=== PATIENT | female | born 1945 | race Caucasian/White ===

== ENCOUNTER 2022-02-01 14:09 | Outpatient (CLI) | payer SELFPAY ==
[2022-02-01 14:43] LABS: Glucose, Point-of-Care* 256 mg/dl (60-115)
[2022-02-01 21:53] LABS: Chloride* 97 mmol/L (96-114); Sodium* 132 mmol/L (135-149)
[2022-02-01 21:54] LABS: Basophils Percent Auto 0.1 % (0.0-3.0); Hematocrit 44.1 % (33.0-51.0); Hemoglobin* 15.2 gm/dL (12.0-16.0); Immature Granulocytes Abs Auto 0.02 K/uL (0.00-0.30); Lymphocytes Percent Auto 2.1 % (20-44); Mean Corpuscular HGB Conc 35 gm/dL (32-36); Mean Corpuscular Hemoglobin 31 pg (26-34); Mean Corpuscular Volume 91 fL (80-100); Monocytes Percent Auto 5.6 % (0.0-11.0); Neutrophils Percent Auto 92.1 % (42.0-72.0); Platelet Count* 270 K/uL (140-440); RDW Coefficient of Variation % 11.7 % (11.5-15.5); Red Blood Count 4.84 m/uL (4.00-5.20)
[2022-02-01 21:56] LABS: Blood Urea Nitrogen* 10 mg/dL (7-30); Calcium* 8.9 mg/dL (8.4-10.6); Carbon Dioxide* 23 mmol/L (20-32); Creatinine* 0.4 mg/dL (0.5-1.5); Estimated Glomerular Filt Rate 101 ml/min; Glucose* 284 mg/dL (60-115)
[2022-02-01 21:57] LABS: Slide Review Reflex No
== END 2022-02-01 14:10 | disposition home or self-care (01) ==
LOC: KYNREF 14:11
PROVIDERS: PCP Nurse Practitioner Family; Visit Provider Nurse Practitioner Family
DX: R11.2 Nausea with vomiting, unspecified (principal); U07.1 COVID-19; R19.7 Diarrhea, unspecified
CPT/HCPCS: 36415; 80048; 82947; 85025

== ENCOUNTER 2022-07-18 09:34 | Outpatient (CLI) | payer MEDICARE, SELFPAY ==
[2022-07-18 14:04] LABS: Basophils Absolute Auto 0.05 K/uL (0.00-0.30); Basophils Percent Auto 0.5 % (0.0-3.0); Eosinophils Absolute Auto 0.14 K/uL (0.00-0.50); Eosinophils Percent Auto 1.3 % (0.0-7.0); Hematocrit 46.7 % (33.0-51.0); Hemoglobin* 15.9 gm/dL (12.0-16.0); Immature Granulocytes Abs Auto 0.03 K/uL (0.00-0.30); Immature Granulocytes Pct Auto 0.3 %; Lymphocytes Absolute Auto 2.19 K/uL (0.90-2.90); Lymphocytes Percent Auto 20.9 % (20-44); Mean Corpuscular HGB Conc 34 gm/dL (32-36); Mean Corpuscular Hemoglobin 31 pg (26-34); Mean Corpuscular Volume 92 fL (80-100); Monocytes Percent Auto 7.5 % (0.0-11.0); Neutrophils Absolute Auto 7.28 K/uL (1.7-7.0); Neutrophils Percent Auto 69.5 % (42.0-72.0); Platelet Count* 285 K/uL (140-440); RDW Coefficient of Variation % 11.7 % (11.5-15.5); Red Blood Count 5.07 m/uL (4.00-5.20); White Blood Count* 10.48 K/uL (4.50-11.00)
[2022-07-18 14:15] LABS: Slide Review Reflex No
[2022-07-18 14:29] LABS: Creatinine Urine 178.8 mg/dL
[2022-07-18 14:31] LABS: Albumin* 4.6 g/dL (3.3-5.0)
[2022-07-18 14:32] LABS: Chloride* 103 mmol/L (96-114); Potassium* 4.7 mmol/L (3.6-5.1); Sodium* 140 mmol/L (135-149)
[2022-07-18 14:33] LABS: Microalbumin Creatinine Ratio 0 mg/g (0-30); Microalbumin Urine 1 mg/dL
[2022-07-18 14:34] LABS: Aspartate Amino Transferase* 22 U/L (12-35); Bilirubin Total* 0.6 mg/dL (0.1-1.5); Carbon Dioxide* 24 mmol/L (20-32); Cholesterol* 215 mg/dL (90-199); Creatinine* 0.6 mg/dL (0.5-1.5); Estimated Glomerular Filt Rate 91 ml/min; Total Protein* 7.4 g/dL (6.0-8.3)
[2022-07-18 14:35] LABS: Alanine Aminotransferase* 18 U/L (4-35); Alkaline Phosphatase* 108 U/L (40-150); Blood Urea Nitrogen* 11 mg/dL (7-30); Calcium* 9.4 mg/dL (8.4-10.6); Glucose* 165 mg/dL (60-115); Triglycerides* 181 mg/dL (40-149)
[2022-07-18 14:36] LABS: HDL Cholesterol* 55 mg/dL (>=50); LDL Cholesterol Calculated 124 mg/dL (<100)
== END 2022-07-18 09:35 | disposition home or self-care (01) ==
PROVIDERS: PCP Nurse Practitioner Family; Visit Provider Nurse Practitioner Family
DX: Z00.00 Encounter for general adult medical examination without abnormal findings (principal); E11.9 Type 2 diabetes mellitus without complications; I10 Essential (primary) hypertension; E78.5 Hyperlipidemia, unspecified; Z13.0 Encounter for screening for diseases of the blood and blood-forming organs and certain disorders involving the immune mechanism
CPT/HCPCS: 80053; 80061; 82043; 82570; 84443; 85025

== ENCOUNTER 2023-07-20 08:16 | Outpatient (CLI) | payer MEDICARE, SELFPAY ==
--- OUTSIDE RECORDS SUMMARY | 2023-07-20 08:22 | XMS_ITS | Referral Summary ---
Author Name Unknown Organization [facility] Address [address] [place] [address] Care Team Providers Care Animal Caregiver Name Role Phone Elsewhere, Pcp Primary Care Provider Unavailabl e Source Comments Patient records contain information from all sites at [facility]. For routine questions regarding patient records, call [phone] during business hours, M-F 8:00 AM - 5:00 PM Central Time. Record requests for emergency care only can be directed to [phone] at any time.[facility] Allergies Active Allergy Reactions Criticality Noted Date Comments Atorvastatin Myalgia 07/13/2011 had in past - reinstitution of that has no has problem Bupropion Other (see comments) 01/18/2016 Metformin GI intolerance High 07/22/2020 Colitis of the descending colon, sigmoid colon and part of the rectum per CT scan 07/20/2020. Rectal bleeding and left lower quadrant pain. Medications Medication Sig Dispensed Refills Start Date End Date Status aspirin 81 mg chewable tablet Chew 1 tablet daily. 0 02/20/2015 Active betamethasone dipropionate (for_DIPROLENE) 0.05 % lotion as needed. 0 03/24/2017 Active polyethylene glycol (MIRALAX) 17 gram powder packet Take 1 packet by mouth as needed. 0 09/22/2017 Active SITagliptin (JANUVIA) 100 mg tabletIndications:Di abetes Mellitus Type 2 (HCC) Take 1 tablet (100 mg total) by mouth daily. 90 tablet 3 07/15/2021 Active SUMAtriptan (IMITREX) 50 mg tabletIndications:Sp oradic Hemiplegic Migraine (SHM) Take 1 tablet (50 mg total) by mouth as needed for migraine. October repeat dose once in 2 hours if migraine unresolved. Do not exceed 200 mg in 24 hours. 9 tablet 3 07/15/2021 Active atenoloL (TENORMIN) 100 mg tabletIndications:Hy pertension Essential Primary Take 1 tablet (100 mg total) by mouth daily. 90 tablet 3 07/15/2021 Active busPIRone (BUSPAR) 10 mg tabletIndications:An xiety Generalized Disorder Take 1 tablet (10 mg total) by mouth 2 (two) times a day. 180 tablet 3 07/15/2021 Active rosuvastatin (Crestor) 10 mg tabletIndications:Hy perlipidemia Mixed Take 1 tablet (10 mg total) by mouth at bedtime. A higher dose of medication could be considered. 90 tablet 3 07/15/2021 Active ammonium lactate (AMLACTIN) 12 % cream APPLY TO AREAS ON BODY TWICE A DAY ONGOING 0 07/19/2021 Active losartan (COZAAR) 50 mg tabletIndications:Hy pertension Essential Primary Take 1 tablet by mouth once daily 90 tablet 3 09/24/2021 Active venlafaxine XR (EFFEXOR-XR) 150 mg 24 hr capsuleIndications:A nxiety Generalized Disorder TAKE 1 CAPSULE BY MOUTH ONCE DAILY WITH FOOD 90 capsule 2 09/27/2021 Active omeprazole (PriLOSEC) [address] capsuleIndications:D yspepsia Take 1 capsule by mouth once daily 90 capsule 3 11/24/2021 Active Active Problems Problem Noted Date Diagnosed Date Ulcerative Chronic Rectosigmoiditis With Rectal Bleeding 07/08/2021 Hyperhidrosis 01/13/2021 Overview: Per dermatology: prescribed oxybutynin XL 5 mg daily at bedtime. 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 Hyperlipidemia Mixed 06/01/2017 Anxiety Generalized Disorder 06/01/2017 Rhinitis Chronic 06/01/2017 Sporadic Hemiplegic Migraine (SHM) 06/01/2017 Keratosis Actinic 05/30/2016 Diabetes Mellitus Type 2 12/24/2014 Supraventricular Tachycardia, Unspecified 2010 Hypertension And Chronic Kidney Disease Stage 2 08/30/2010 Osteopenia 08/05/2010 Resolved Problems Problem Noted Date Diagnosed Date Resolved Date Obesity Body Mass Index 30-39.9 Adult 02/08/2019 07/15/2021 Health Instruction Exam 11/01/201801/18 Dermatitis 06/01/2017 07/14/2020 Supraventricular Tachycardia, Unspecified 11/18/2013 06/01/2017 Overview: Supraventricular tachycardia Immunizations Name Administration Dates Next Due HZV (ZOSTAVAX) 07/02/2012 Influenza (IM) Preservative Free 05/08/2015,12/2006 Influenza TIV (IM) 05/03/2018 Influenza high dose QV(65 ye ars or older) (PF) 05/18/2021,04/06/2020 Influenza, Unspecified 03/24/2017,2015,04/09/2014,2012,04/10/2012,04/05/2011,04/07/2010,0 03/17/2009,04/24/2008,04/25/2007 PCV13 05/09/2014 PPSV23(Discontinued) 05/25/2009 SARS-COV-2 (COVID-19) - PFIZ ER (Discontinued)(12 years or older) 03/25/2021,08/31/2020,08/06/2020 Td (Adult), adsorbed 06/01/2017 Td, (Adult) Unspecified 01/01/1997 Tdap 11/12/2021,05/03/2007 influenza high dose (65 year s or older) (PF) 03/28/2019,05/03/2018 Social History Tobacco Use Types Packs/Day Years Used Date Smoking Tobacco: Never Smokeless Tobacco: Never Tobacco Cessation:Counseling Given: Yes Humiliation, Afraid, Rape, and Kick questionnair e Answer Date Recorded Within the last year, have y ou been afraid of your partner or ex-partner? No 07/10/2021 Within the last year, have y ou been humiliated or emotionally abused in other ways by your partner or ex-partner? No Within the last year, have y ou been kicked, hit, slapped, or otherwise physically hurt by your partner or ex-partner? No 07/10/2021 Within the last year, have y ou been raped or forced to have any kind of sexual activity by your partner or ex-partner? No 07/10/2021 Social Connection and Isolat ion Panel [NHANES] Answer Date Recorded In a typical week, how many times do you talk on the phone with family, friends, or neighbors? More than three times a week 07/10/2021 How often do you get togethe r with friends or relatives? Three times a week 07/10/2021 How often do you attend chur or latter day services? More than 4 times per year 07/10/2021 Do you belong to any clubs o r organizations such as temple groups, unions, fraternal or athletic groups, or school groups? Yes 07/10/2021 How often do you attend meet ings of the clubs or organizations you belong to? More than 4 times per year 07/10/2021 Are you , , di vorced, , never , or living with a partner? 07/10/2021 AUDIT-C Answer Date Recorded Q1: How often do you have a drink containing alc ohol? Monthly or less 07/10/2021 Q2: How many drinks containi ng alcohol do you have on a typical day when you are drinking? 1 or 2 07/10/2021 Q3: How often do you have si x or more drinks on one occasion? Never 07/10/2021 Overall Financial Resource Strain (CARDIA) Answe r Date Recorded How hard is it for you to pa y for the very basics like food, housing, medical care, and heating? Not hard at all 07/10/2021 PHQ-2 Answer Date Recorded PHQ-2 Score 0 07/15/2021 [facility] - Occupational Stress Questionnaire Answer Date Recorded Do you feel stress - tense, restless, nervous, or anxious, or unable to sleep at night because your mind is troubled all the time - these days? To some extent 07/10/2021 Exercise Vital Sign Answer Date Recorde d On average, how many days pe r week do you engage in moderate to strenuous exercise (like a brisk walk)? 4 days 07/10/2021 On average, how many minutes do you engage in exercise at this level? 30 min 07/10/2021 Hunger Vital Sign Answer Date Recorded Within the past 12 months, y ou worried that your food would run out before you got the money to buy more. Never true 07/10/19 Within the past 12 months, t he food you bought just didn't last and you didn't have money to get more. Never true 07/10/2021 PRAPARE - Transportation Answer Date Re corded In the past 12 months, has l ack of transportation kept you from medical appointments or from getting medications? No 06/20 In the past 12 months, has l ack of transportation kept you from meetings, work, or from getting things needed for daily living? No 07/10/2021 Housing Stability Vital Sign Answer Itz e Recorded In the last 12 months, was t here a time when you were not able to pay the mortgage or rent on time? No 07/10/2021 In the last 12 months, how many places have you lived? 1 07/10/2021 In the last 12 months, was t here a time when you did not have a steady place to sleep or slept in a snf (including now)? No 07/10/2021 Nutrition Answer Date Recorded Nutrition: EVOO Fat Source Yes 07/10 On average, how many serving s of fruits and vegetables do you eat per day (serving size is equal to 1 cup or approximately the size of a tennis ball)? 0-1 07/10/2021 Dental Answer Date Recorded Dental: Regular Dentist Yes 08/06/19 Employment Answer Date Recorded Employment status Retired 07/10/2021 Education Answer Date Recorded What is the highest level of school you have completed or the highest degree you have received? Associate degree: academic program 07/10/2021 Sex and Gender Information Value Date Recorded Sex Assigned at Female 06/01/2017 8:39 AM RETAIL COVERAGE MERCHANDISER Gender Identity Female 06/01/2017 8:39 AM RETAIL COVERAGE MERCHANDISER Sexual Orientation Straight 06/01/2017 8: 39 AM RETAIL COVERAGE MERCHANDISER Last Filed Vital Signs Vital Sign Reading Time Taken Comments Blood Pressure 138/83 12/23/2021 11:48 AM CDT Pulse 67 12/23/2021 11:48 AM CDT Temperature 36.8 ??C (98.2 ??F) 12/23/2021 11:40 AM C DT Respiratory Rate 20 12/23/2021 11:40 AM CDT Oxygen Saturation 100% 01/13/2021 9:18 AM CDT Inhaled Oxygen Concentration - - Weight 80.4 kg (177 lb 4 oz) 12/23/2021 11:40 AM CDT Height 170.4 cm (5' 7.09) 12/23/2021 11:40 AM C DT Body Mass Index 27.69 12/23/2021 11:40 AM CDT Plan of Treatment Not on file Advance Directives For more information, please contact: [phone] Documents on File Type Date Recorded Patient Safety Patrol Officer Expl anation Advance Directives 08/08/2014 12:00 AM Leg acy document. See document viewer. Care Teams Animal Caregiver Relationship Specialty Start Date End Date Elsewhere, Pcp PCP - General Internal Medicine 06/06/22
--- OUTSIDE RECORDS SUMMARY | 2023-07-20 08:22 | XMS_ITS | Clinical Summary ---
Author Name Unknown Organization [facility] Address [address] [place] [address] Care Team Providers Care Resizer Operator Name Role Phone Elsewhere, Pcp Primary Care Provider Unavailabl e Source Comments Patient records contain information from all sites at [facility]. For routine questions regarding patient records, call [phone] during business hours, M-F 8:00 AM - 5:00 PM Central Time. Record requests for emergency care only can be directed to [phone] at any time.[facility] Allergies Active Allergy Reactions Criticality Noted Date [...] (65 year s or older) (PF) 03/28/2019,05/03/2018 Family History Medical History Relation Name Comments Agent [employer] Brother Alcohol abuse Brother COPD Brother Coronary artery disease Brother Diabetes Brother Drug abuse Brother Heart attack Brother Hyperlipidemia Brother Hypertension Brother Diabetes mellitus type I Child 1 Diabetes mellitus type I Child 2 Dementia Father Cause of Heart attack Father Other(retired) Maternal Grandfather Clot in leg No Known Problems Maternal Grandmother Cancer Mother Cause of Diabetes Mother Hyperlipidemia Mother Hypertension Mother Cancer Paternal Grandfather Face an d neck Dementia Paternal Grandmother retirement resident Breast cancer Sister 1 Radha inflammatory b reast cancer Mental illness Sister 1 Radha Dementia Sister 2 Relation Name Status Comments Brother (Age 76) Child 1 Child 2 Father (Age 93) Maternal Grandfather (Age 80) Maternal Grandmother (Age 80) Mother (Age 58) Paternal Grandfather (Age 80) Paternal Grandmother (Age 80) Sister 1 Radha (Age 50) Sister 2 Alive Social History Tobacco Use Types Packs/Day Years [...] How often do you attend chur or confucianist services? More than 4 times per year 07/10/2021 Do you belong to any clubs o r organizations such as rastafarian groups, unions, fraternal or athletic groups, or [...] Answer Date Recorded PHQ-2 Score 0 07/15/2021 [facility] - Occupational Stress Questionnaire Answer Date [...] place to sleep or slept in a halfway (including now)? No 07/10/2021 Nutrition Answer Date Recorded Nutrition: EVOO Fat Source Yes 07/10 On average, how many serving s of fruits and vegetables do you eat per day (serving size is equal to 1 cup or approximately the size of a tennis ball)? 0-1 07/10/2021 Dental Answer Date Recorded Dental: Regular Dentist Yes 08/06/19 21 Employment Answer Date Recorded Employment status Retired 07/10/2021 Education Answer Date Recorded What is the highest level of school you have completed or the highest degree you have received? Associate degree: academic program 07/10/2021 Sex and Gender Information Value Date Recorded Sex Assigned at Female 06/01/2017 8:39 AM FOLDER MACHINE Gender Identity Female 06/01/2017 8:39 AM FOLDER MACHINE Sexual Orientation Straight 06/01/2017 8: 39 AM FOLDER MACHINE Last Filed Vital Signs Vital Sign Reading [...] 12/23/2021 11:40 AM CDT Plan of Treatment Health Maintenance Due Date Last Done Comments Hepatitis B Vaccines (1 of 3 - Risk 3-dose series) 2003 Hemoglobin A1C 06/16/2022 12/15/2021, 06/20, 01/11/2021, Additional history exists Urine Albumin 07/14/2022 07/14/2021, 06/20, 07/11/2019, Additional history exists Diabetes Education 07/15/2022 07/15/2021, 0 07/14/2020, 05/27/2015 Diabetic Office Visit with F oot Exam 07/15/2022 07/15/2021, 07/14/2020, 05/27/2015 Dilated Eye Exam 12/14/2022 12/14/2021 (Per formed elsewhere), 12/10/2020 (Performed elsewhere), 12/10/2020 (Performed elsewhere) Creatinine Level (Kidney Fun ction Test) 12/15/2022 12/15/2021, 07/14/2021, 01/11/2021, Additional history exists Potassium Level 12/15/2022 12/15/2021, 06/20, 01/11/2021, Additional history exists Sodium Level 12/15/2022 12/15/2021, 06/20, 01/11/2021, Additional history exists Office Visit for Blood Press ure Check / Re-check 12/23/2022 12/23/2021 Depression Screening (Annual PHQ-2) 06/19/2023 Fall Risk Screen (Annual) 06/19/2023 DTaP,Tdap,and Td Vaccines (4 - Td or Tdap) 11/13/2031 11/12/2021, 06/01/2017, 05/03/2007, Additional history exists Pneumococcal vaccine (65+ years) Completed 05/09/20 14, 05/25/2009 Colonoscopy Discontinued 06/27/2018, 05/06/2008 Colorectal Cancer Surveillance Discontinued Zoster Vaccines Completed 03/01/2022, 12/17, 07/02/2012 Mammogram Discontinued 07/18/2022, 06/20, 07/14/2020, Additional history exists COVID-19 Vaccine Completed 03/28/2023, , 03/25/2021, Additional history exists Influenza Vaccine Completed 03/28/2023, , 05/18/2021, Additional history exists CT Colonography Discontinued Cologuard Discontinued Advance Directives For more information, please contact: [phone] Documents on File Type Date Recorded Patient Outbound Sales Advisor Expl anation Advance Directives 08/08/2014 12:00 AM Leg acy document. See document viewer. Care Teams Resizer Operator Relationship Specialty Start Date End Date Elsewhere, Pcp PCP - General Internal Medicine 06/06/22
--- OUTSIDE RECORDS SUMMARY | 2023-07-20 08:22 | XMS_ITS | Clinical Summary ---
Author Name Unknown Organization [email or web address] Address [place], [place] [address] Care Team Providers Care Microeconomics Professor Name Role Phone Adenike Storey JAIL MANAGER Primary Care Provider [phone] Allergies Active Allergy Reactions Criticality Noted Date Comments Atorvastatin Myalgia 07/13/2011 Bupropion Other - Describe In Comment Field 01/18/2016 Metformin GI Upset High 07/22/2020 Colitis of the descending colon, sigmoid colon and part of the rectum per CT scan 07/20/2020. Rectal bleeding and left lower quadrant pain. Medications Medication Sig Dispensed Refills Start Date End Date Status atenolol (TENORMIN) 100 mg tablet Take 100 mg by mouth once daily. 0 Active SUMAtriptan (IMITREX) 50 mg tablet Take 50 mg by mouth every 2 hours if needed for Migraine. Max dose: 200mg per 24 hrs. 0 Active Cetirizine (ZYRTEC) 10 mg cap Take 10 mg by mouth. 0 Active polyethylene glycol (MIRALAX) 17 g powder for solutionIndications:Co nstipation, unspecified constipation type Take 17 g by mouth once daily. 10 Packet 0 09/22/2017 Active venlafaxine (EFFEXOR XR) 150 mg Extended-Release capsuleIndications:Anx iety Take 1 Capsule (150 mg) by mouth once daily with evening meal. 0 11/13/2022 Active busPIRone (BUSPAR) 10 mg tablet Take 10 mg by mouth two times daily. 0 07/15/2021 Active losartan (COZAAR) 50 mg tablet Take 1 Tablet by mouth once daily. 0 09/24/2021 Active omeprazole (PRILOSEC) 20 mg Delayed-Release capsule Take 1 Capsule by mouth once daily. 0 11/24/2021 Active rosuvastatin (CRESTOR) 10 mg tablet Take 10 mg by mouth once daily with evening meal. 0 07/15/2021 Active SITagliptin phosphate (JANUVIA) 100 mg tablet Take 100 mg by mouth once daily. 0 07/15/2021 Active Encounters Date Type Department Care Team Description 07/13/2023 1:38 PM MGMT SPECIALIST - 07/13/2023 11:59 PM MGMT SPECIALIST Hospital Encounter [address] [address] Michelle Edwards PA Henry, Lori J, COMBINER OPERATOR 07/13/2023 Travel 07/06/2023 1:00 PM MGMT SPECIALIST - 07/06/2023 11:59 PM [facility] Hospital Encounter [address] [address] Michelle Edwards PA Henry, Lori J, COMBINER OPERATOR 07/06/2023 Travel 06/29/2023 11:28 AM MGMT SPECIALIST - 06/29/2023 11:59 PM [facility] Hospital Encounter [address] [address] Michelle Edwards PA Hagy, Tia, PT Encounter for person encountering health services 06/29/2023 Travel 06/21/2023 Transcribe Orders [facility] [address] [address] Michelle Edwards PA from Last 3 Months Social History Tobacco Use Types Packs/Day Years Used Date Smoking Tobacco: Never Smokeless Tobacco: Never Alcohol Use Standard Drinks/Week Comments Yes 0 (1 standard drink = 0.6 oz pur e alcohol) socially Sex and Gender Information Value Date Recorded Sex Assigned at Not on file Gender Identity Not on file Sexual Orientation Not on file Obstetrics History Last Filed Vital Signs Vital Sign Reading Time Taken Comments Blood Pressure 135/73 11/13/2022 5:58 PM CDT Pulse 70 11/13/2022 5:58 PM CDT Temperature 36.9 ??C (98.5 ??F) 11/13/2022 5:58 PM CD T Respiratory Rate 16 11/13/2022 5:58 PM CDT Oxygen Saturation 97% 11/13/2022 5:58 PM CDT Inhaled Oxygen Concentration - - Weight 82.2 kg (181 lb 3.2 oz) 11/13/2022 4:08 P M CDT Height 170.2 cm (5' 7) 07/20/2020 11:01 AM MGMT SPECIALIST Body Mass Index 28.38 07/20/2020 11:01 AM MGMT SPECIALIST Plan of Treatment Upcoming Encounters Date Type Department Care Team (Late st Contact Info) Description 07/21/2023 1:15 PM MGMT SPECIALIST Appointment [address] [address] Flavia Pryor, PT [address] [place] [address] 07/27/2023 11:00 AM MGMT SPECIALIST Appointment [address] [address] Jeanine Lopes, COMBINER OPERATOR [address] [place] [address] 08/04/2023 11:30 AM MGMT SPECIALIST Appointment [address] [address] Flavia Pryor, PT [address] [facility] [place] [address] 08/10/2023 11:00 AM MGMT SPECIALIST Appointment [address] [address] Jeanine Lopes, COMBINER OPERATOR [address] [place] [address] 08/17/2023 9:15 AM MGMT SPECIALIST Appointment [address] [address] Flavia Pryor, PT [address] [facility] [place] [address] 08/24/2023 11:00 AM MGMT SPECIALIST Appointment [facility] [address] [place] [address] Jeanine Lopes, COMBINER OPERATOR [address] [place] [address] 08/31/2023 11:30 AM CDT Appointment [facility] [address] [place] [address] Flavia Pryor, PT [address] [place] [address] Health Maintenance Due Date Last Done Comments Tdap 1954 Depression screening for age 12+ 1955 BMI (ht and wt on same day) for age 18+ 1961 Tetanus booster 1963 Zoster (shingles) series for age 50+ (1 of 2) 1993 DEXA/DXA scan for age 65+ 2008 Medicare Wellness for age 65+ 2008 Pneumococcal series for age 65+ (1 of 1 - PCV) 2008 Influenza for age 65+ 02/17/2023 COVID-19 vaccine series Completed 03/28/20, 11/12/2021, 03/25/2021, Additional history exists Advance Directives Latest Code Status on File Code Status Date Activated Date Inactivated Comments Full Code 06/27/2018 6:49 AM 06/27/2018 11:10 AM Care Teams Microeconomics Professor Relationship Specialty Start Date End Date Adenike Storey NP [address] [place] [address] PCP - General Emergency Medicine 05/18/22
--- OUTSIDE RECORDS SUMMARY | 2023-07-20 08:22 | XMS_ITS ---
Author Name Unknown Organization [facility] Address [address] [place] [address] Care Team Providers Care Telemetry Tech Name Role Phone Unavailable Unavailable Unavailable Surgery Details Not on file Complications Check Surgery Details section. Procedure Estimated Blood Loss Check Surgery Details section. Procedure Findings Check Surgery Details section. Procedure Specimens Taken Check Surgery Details section.
== END 2023-07-20 08:17 | disposition home or self-care (01) ==
PROVIDERS: PCP Nurse Practitioner Family; Visit Provider Nurse Practitioner Family
DX: E78.5 Hyperlipidemia, unspecified (principal); I10 Essential (primary) hypertension; E06.9 Thyroiditis, unspecified; E11.9 Type 2 diabetes mellitus without complications; Z79.85 Long-term (current) use of injectable non-insulin antidiabetic drugs; Z13.0 Encounter for screening for diseases of the blood and blood-forming organs and certain disorders involving the immune mechanism
CPT/HCPCS: 80053; 80061; 82043; 82570; 84443; 85025

== ENCOUNTER 2023-08-01 12:57 | Outpatient (CLI) | payer MEDICARE, SELFPAY ==
--- NOTE | 2023-08-01 13:00 | XR_ITS ---
Patient: FAWN GOVEA Facility:?[facility] Patient ID:?[id number] Site Patient ID:?[id number]. Site :?[id number] Study:?DEXA-Bone Density DEXA - Spine/Hips-08/01/2023 1:46:49 PM Ordering Physician:DAVID Final Report: DXA BONE MINERAL DENSITY STUDY Reason for exam: Osteopenia. Current height (in): 66.5. Weight (lb): 180. Menopause age: 48. Ethnicity: White. 1. Have you had a previous hip or vertebral fracture? No. 2. Have you had any fractures during your adult life which did not result from significant trauma (e.g., auto accident)? No. 3. Did either of your parents have a hip fracture? No. 4. Do you smoke? No. 5. Have you ever taken Glucocorticoids? No. 6. Do you have rheumatoid arthritis? No. 7. Do you have secondary osteoporosis? No. 8. Do you drink 3 or more alcoholic drinks per day? No. 9. Are you being treated for osteoporosis? No. 10. Have you ever taken any of the following medications: Actonel, Evista, Fosamax, Miacalcin, Reclast, Boniva, Forteo, HRT (i.e., estrogen/hormone therapy), Protelos, Prolia, Vitamin D, Calcium, other ? please specify. ANSWER: Yes, vitamin D and calcium. 11. Do you have any of the following medical conditions: Anorexia or bulimia, asthma or emphysema, end stage renal disease, hyperparathyroidism, any seizure disorders, cancer, inflammatory bowel diseases, hysterectomy, other ? please specify. ANSWER: Yes, Inflammatory bowel diseases and hysterectomy. 12. What was your maximum height (inches)? 67. 13. Do you perform weight bearing exercise regularly? Yes. 14. Do you regularly consume dairy products? Yes. 15. Do you drink caffeinated beverages? Yes. If female: 16. At what age did your period start? 12. 17. Are you premenopausal? No. 18. How many full-term pregnancies have you had? 3. 19. Have you ever missed your period for more than 6 months in a row (not including or menopause)? No. TECHNIQUE: Bone mineral density study was performed using the [employer]. FINDINGS: The results of the study expressed as bone mineral density (BMD) are as follows: Lumbar spine L1 to L3: BMD: 1.113 g/cm2. T-score: 0.9. Z-score: 3.5 Neck Left: BMD: 0.748 g/cm2. T-score: -0.9. Z-score: 1.4 Right: BMD: 0.695 g/cm2. T-score: -1.4. Z-score: 0.9 Total Left: BMD: 0.971 g/cm2. T-score: 0.2. Z-score: 2.3 Right: BMD: 1.014 g/cm2. T-score: 0.6. Z-score: 2.7 IMPRESSION: Osteopenia. FRAX 10-year Fracture Risk Major Osteoporotic Fracture: 13% Hip Fracture: 2.9% Reported Risk Factors: [place] () Neck BMD=0.695, BMI=28.6 Dictated by: Dong Madrid MD @08/08/2023 8:18:57 AM jj/Dictated by: Dong Madrid MD @ 08/08/2023 8:19:00 AM Signed by:?Dong Madrid MD @08/13/2023 6:25:52 AM (Electronic Signature)
--- OUTSIDE RECORDS SUMMARY | 2023-08-01 13:03 | XMS_ITS | Clinical Summary ---
Author Name Unknown Organization [facility] Address [address] [place] [address] Care Team Providers Care Customer Acquisition Manager Name Role Phone Elsewhere, Pcp Primary Care Provider Unavailabl e Source Comments Patient records contain information from all sites at [facility]. For routine questions regarding patient records, call [phone] during business hours, M-F 8:00 AM - 5:00 PM Central Time. Record requests for emergency care only can be directed to [phone] at any time.[facility] Allergies Active Allergy Reactions Criticality Noted Date [...] History Medical History Relation Name Comments Agent Bovina Brother Alcohol abuse Brother COPD Brother Coronary [...] Face an d neck Dementia Paternal Grandmother alf resident Breast cancer Sister 1 Radha inflammatory [...] How often do you attend chur or quaker services? More than 4 times per year 07/10/2021 Do you belong to any clubs o r organizations such as methodist groups, unions, fraternal or athletic groups, or [...] Answer Date Recorded PHQ-2 Score 0 07/15/2021 [facility]at ional [facility] - Occupational Stress [...] place to sleep or slept in a prison (including now)? No 07/10/2021 Nutrition Answer Date [...] Sex Assigned at Female 06/01/2017 8:39 AM GIFT SHOP MANAGER Gender Identity Female 06/01/2017 8:39 AM GIFT SHOP MANAGER Sexual Orientation Straight 06/01/2017 8: 39 AM GIFT SHOP MANAGER Last Filed Vital Signs Vital Sign Reading [...] 12/23/2021 11:40 AM CDT Plan of Treatment Upcoming Encounters Date Type Department Care Team (Late st Contact Info) Description 08/30/2023 1:30 PM CDT Appointment Department of Radiology in [place], [place] [address] [place] [address] Kathleen Gao M.D. [address] [place] [address] Discharge Disposition: Home or Self Care Health Maintenance Due Date Last Done Comments [...] elsewhere), 12/10/2020 (Performed elsewhere), 12/10/2020 (Performed elsewhere) Office Visit for Blood Press ure Check / Re-check 12/23/2022 12/23/2021 Depression Screening (Annual PHQ-2) 06/19/2023 Fall Risk Screen (Annual) 06/19/2023 Creatinine Level (Kidney Fun ction Test) 11/14/2023 11/13/2022, 12/15/2021, 07/14/2021, Additional history exists Potassium Level 11/14/2023 11/13/2022, 11/18, 07/14/2021, Additional history exists Sodium Level 11/14/2023 11/13/2022, 11/18, 07/14/2021, Additional history exists DTaP,Tdap,and Td Vaccines (4 - Td or [...] Advance Directives For more information, please contact: [phone] Documents on File Type Date Recorded Patient Diagnostic Technologist Expl anation Advance Directives 08/08/2014 12:00 AM Leg acy document. See document viewer. Care Teams Customer Acquisition Manager Relationship Specialty Start Date End Date Elsewhere, Pcp PCP - General Internal Medicine 06/06/22
--- OUTSIDE RECORDS SUMMARY | 2023-08-01 13:03 | XMS_ITS | Referral Summary ---
Author Name Unknown Organization [facility] Address [address] [place] [address] Care Team Providers Care Admissions Gate Attendant Name Role Phone Elsewhere, Pcp Primary Care Provider Unavailabl e Source Comments Patient records contain information from all sites at [facility]. For routine questions regarding patient records, call [phone] during business hours, M-F 8:00 AM - 5:00 PM Central Time. Record requests for emergency care only can be directed to [phone] at any time.[facility] Allergies Active Allergy Reactions Criticality Noted Date [...] How often do you attend chur or holiness services? More than 4 times per year 07/10/2021 Do you belong to any clubs o r organizations such as roman catholic groups, unions, fraternal or athletic groups, or [...] Answer Date Recorded PHQ-2 Score 0 07/15/2021 [facility] - Occupational Stress Questionnaire Answer Date [...] place to sleep or slept in a fci (including now)? No 07/10/2021 Nutrition Answer Date [...] Sex Assigned at Female 06/01/2017 8:39 AM DELIVERY HELPER Gender Identity Female 06/01/2017 8:39 AM DELIVERY HELPER Sexual Orientation Straight 06/01/2017 8: 39 AM DELIVERY HELPER Last Filed Vital Signs Vital Sign Reading [...] PM CDT Appointment Department of Radiology in [place], [place] [address] [place] [address] Kathleen Gao M.D. [address] [place] [address] Discharge Disposition: Home or Self Care Advance Directives For more information, please contact: [phone] Documents on File Type Date Recorded Patient National Account Representative Expl anation Advance Directives 08/08/2014 12:00 AM Leg acy document. See document viewer. Care Teams Admissions Gate Attendant Relationship Specialty Start Date End Date Elsewhere, Pcp PCP - General Internal Medicine 06/06/22
--- OUTSIDE RECORDS SUMMARY | 2023-08-01 13:03 | XMS_ITS | Clinical Summary ---
Author Name Unknown Organization [facility] Address [place], [place] [address] Care Team Providers Care Pan Washer Name Role Phone Adenike Storey EDGING MACHINE OPERATOR Primary Care Provider [phone] Allergies Active Allergy Reactions Criticality Noted Date [...] Encounters Date Type Department Care Team Description 07/27/2023 10:56 AM APPEALS SPECIALIST - 07/27/2023 11:59 PM APPEALS SPECIALIST Hospital Encounter [address] [address] Michelle Edwards PA Henry, Lori J, PLANER TAILER 07/27/2023 Travel 07/21/2023 1:04 PM APPEALS SPECIALIST - 07/21/2023 11:59 PM APPEALS SPECIALIST Hospital Encounter [address] [address] Michelle Edwards PA Hagy, Tia, PT 07/21/2023 Travel 07/13/2023 1:38 PM APPEALS SPECIALIST - 07/13/2023 11:59 PM APPEALS SPECIALIST Hospital Encounter [address] [address] Michelle Edwards PA Henry, Lori J, PLANER TAILER 07/13/2023 Travel 07/06/2023 1:00 PM APPEALS SPECIALIST - 07/06/2023 11:59 PM APPEALS SPECIALIST Hospital Encounter [address] [address] Michelle Edwards PA Henry, Lori J, PLANER TAILER 07/06/2023 Travel 06/29/2023 11:28 AM APPEALS SPECIALIST - 06/29/2023 11:59 PM APPEALS SPECIALIST Hospital Encounter [address] [address] Michelle Edwards PA Hagy, Flavia, PT Encounter for person encountering health services 06/29/2023 Travel 06/21/2023 Transcribe Orders [facility] - [address] [address] Michelle Edwards PA from Last 3 Months [...] 170.2 cm (5' 7) 07/20/2020 11:01 AM APPEALS SPECIALIST Body Mass Index 28.38 07/20/2020 11:01 AM APPEALS SPECIALIST Plan of Treatment Upcoming Encounters Date Type Department Care Team (Late st Contact Info) Description 08/04/2023 11:30 AM APPEALS SPECIALIST Appointment [address] [address] Flavia Pryor, PT [address] [place] [address] 08/10/2023 11:00 AM APPEALS SPECIALIST Appointment [address] [address] Jeanine Lopes, PLANER TAILER [address] [place] [address] 08/17/2023 9:15 AM APPEALS SPECIALIST Appointment [address] [address] Flavia Pryor, PT [address] [place] [address] 08/24/2023 11:00 AM APPEALS SPECIALIST Appointment [facility] [address] [place] [address] Jeanine Lopes, PLANER TAILER [address] [place] [address] 08/31/2023 11:30 AM CDT Appointment [facility] [address] [place] [address] Flavia Pryor, PT [address] [place] [address] Health Maintenance Due Date Last Done Comments [...] 6:49 AM 06/27/2018 11:10 AM Care Teams Pan Washer Relationship Specialty Start Date End Date Adenike Storey NP [address] [place] [address] PCP - General Emergency Medicine 05/18/22
--- OUTSIDE RECORDS SUMMARY | 2023-08-01 13:03 | XMS_ITS ---
Author Name Unknown Organization [facility] Address [address] [place] [address] Care Team Providers Care Scanning Tech Name Role Phone Unavailable Unavailable Unavailable Surgery Details Not on file Complications Check Surgery Details section. Procedure Estimated Blood Loss Check Surgery Details section. Procedure Findings Check Surgery Details section. Procedure Specimens Taken Check Surgery Details section.
== END 2023-08-01 12:58 | disposition home or self-care (01) ==
LOC: RAD 12:58
PROVIDERS: PCP Nurse Practitioner Family; Visit Provider Nurse Practitioner Family
DX: M85.80 Other specified disorders of bone density and structure, unspecified site (principal); M85.89 Other specified disorders of bone density and structure, multiple sites
CPT/HCPCS: 77080

== ENCOUNTER 2023-10-24 08:16 | Outpatient (CLI) | payer MEDICARE, SELFPAY ==
--- OUTSIDE RECORDS SUMMARY | 2023-10-25 06:23 | XMS_ITS | Referral Summary ---
Author Name Unknown Organization [facility] Address [address] [place] [address] Care Team Providers Care Sales Operations Specialist Name Role Phone Elsewhere, Pcp Primary Care Provider Unavailabl e Source Comments Patient records contain information from all sites at [facility]. For routine questions regarding patient records, call [phone] during business hours, M-F 8:00 AM - 5:00 PM Central Time. Record requests for emergency care only can be directed to [phone] at any time.[facility] Encounters Date Type Department Care Team Description 08/30/2023 1:11 PM CDT - 08/30/2023 11:59 PM CDT Hospital Encounter Department of Radiology in [address] [address] Kathleen Gao M.D. Screening Mammogram Average Risk Patient Discharge Disposition: Home or Self Care from Last 3 Months Allergies Active Allergy Reactions Criticality Noted Date [...] mg chewable tablet Chew 1 tablet daily. 02/20/2015 Active betamethasone dipropionate (for_DIPROLENE) 0.05 % lotion as needed. 03/24/2017 Active polyethylene glycol (MIRALAX) 17 gram powder packet Take 1 packet by mouth as needed. 09/22/2017 Active SITagliptin (JANUVIA) 100 mg tabletIndications:Di abetes Mellitus Type 2 (HCC) Take 1 tablet (100 mg total) by mouth daily. 90 tablet 3 07/15/2021 Active SUMAtriptan (IMITREX) 50 mg tabletIndications:Sp oradic Hemiplegic Migraine (SHM) Take 1 tablet (50 mg total) by mouth as needed for migraine. May repeat dose once in 2 hours if [...] AREAS ON BODY TWICE A DAY ONGOING 07/19/2021 Active losartan (COZAAR) 50 mg tabletIndications:Hy [...] 05/18/2021,04/06/2020 Influenza, Unspecified 03/24/2017,2015,04/09/2014,2012,04/10/2012,04/05/2011,04/07/2010,0 03/17/2009,04/24/2008,04/25/2007 PCV13 05/09/2014 PPSV23 05/25/2009 SARS-COV-2 (COVID-19) - PFIZ ER (Discontinued)(12 [...] How often do you attend chur or islam services? More than 4 times per year 07/10/2021 Do you belong to any clubs o r organizations such as congregational groups, unions, fraternal or athletic groups, or [...] Answer Date Recorded PHQ-2 Score 0 07/15/2021 [facility] of Occupat ional Health - Occupational Stress [...] place to sleep or slept in a usp (including now)? No 07/10/2021 Nutrition Answer Date [...] Sex Assigned at Female 06/01/2017 8:39 AM SCRAPER TENDER Gender Identity Female 06/01/2017 8:39 AM SCRAPER TENDER Sexual Orientation Straight 06/01/2017 8: 39 AM SCRAPER TENDER Last Filed Vital Signs Vital Sign Reading [...] CDT Plan of Treatment Not on file Procedures Procedure Name Priority Date/Time Associated Diagnosis Comments BI BREAST SCREENING BILATERAL WITH TOMOSYNTHESIS RAD - Routine (most inpatients and all outpatients) 08/30/2023 1:40 PM CDT Screening Mammogram Average Risk Patient EXTI BASIC METABOLIC PANEL, S/P Routine 11/13/2022 4:38 PM CDT HEMOGLOBIN A1C, B Routine 12/15/2021 8:3 6 AM CDT Diabetes Mellitus Type 2 (HCC) ALBUMIN, RANDOM, U Routine 07/14/2021 8: 56 AM SCRAPER TENDER Diabetes Mellitus Type 2 (HCC) from Last 3 Months or Most Recently Relevant to Health Maintenance Results * BI Breast Screening Bilateral with Tomosynthesis (08/30/2023 1:40 PM CDT) Anatomical Region Laterality Modality Breast, Breast Imaging RST L OS, Breast Imaging ARZ LOS, Breast Imaging FLA LOS Bilateral Mammography Impressions 08/30/2023 2:53 PM CDT Negative. RECOMMENDATION: ??Annual Screening Mammogram ASSESSMENT: ??BI-RADS: 1: Negative. Narrative 08/30/2023 2:53 PM CDT EXAM: ??BI BREAST SCREENING BILATERAL WITH TOMOSYNTHESIS Current study was evaluated with a Computer Aided Detection (CAD) system. INDICATION: ??Screening mammogram. COMPARISON: ??Prior exam(s) were available and reviewed for comparison. DENSITY: ??c. The breast(s) are heterogeneously dense, which may obscure small masses. FINDINGS: ??No mammographic findings of malignancy. Procedure Note Aly Latif M.D. - 08/30/2023 EXAM: BI BREAST SCREENING BILATERAL WITH TOMOSYNTHESIS Current study was evaluated with a Computer Aided Detection (CAD) system. INDICATION: Screening mammogram. COMPARISON: Prior exam(s) were available and reviewed for comparison. DENSITY: c. The breast(s) are heterogeneously dense, which may obscuresmall masses. FINDINGS: No mammographic findings of malignancy. IMPRESSION: Negative. RECOMMENDATION: Annual Screening Mammogram ASSESSMENT: BI-RADS: 1: Negative. Kathleen Gao M.D. IMG BI PROCEDURES * (ABNORMAL) Hemoglobin A1c (12/15/2021 8:36 AM CDT) Hemoglobin A1c, B 7.1(H) 4.2 - 5.6 % 12/15/2021 6:24 PM CDT OWAT Comment: Hemoglobin A1c values greater than or equal to 6.5 percent are diagnostic for diabetes mellitus. ??Diagnosis should be confirmed by repeat testing. ??In diabetic patients, HbA1c goals should be discussed with healthcare provider. Blood (Blood, Venous) 12/15/2021 8:36 AM CDT 12/15/2021 5:44 PM CDT Ronda Morris APRN, C.N.P., R.N. LAB BL OOD ADD-ON [facility] [address] [place] [address], [place] OWAT [facility] [address] [place] [address] * Albumin, Random, Urine (07/14/2021 8:56 AM SCRAPER TENDER) Microalbumin 12.0 mg/L 07/14/2021 5:57 PM SCRAPER TENDER OWAT Creatinine 223 mg/dL 07/14/2021 5:57 PM SCRAPER TENDER OWAT Albumin/Creatinin e Ratio 5 <25 mg/g 07/14/2021 5:57 PM SCRAPER TENDER OWAT Urine (Urine, Clean Catch) 07/14/2021 8:56 AM SCRAPER TENDER 07/14/2021 5:14 PM SCRAPER TENDER Ronda Morris APRN C.N.P., R.N. LAB UR INE ORDERABLES [facility] [address] [place] [address], [place] OW[place] [facility] [address] [place] [address] from Last 3 Months or Most Recently Relevant to Health Maintenance Advance Directives For more information, please contact: [phone] Documents on File Type Date Recorded Patient Antique Repairer Expl anation Advance Directives 08/08/2014 12:00 AM Leg acy document. See document viewer. Care Teams Sales Operations Specialist Relationship Specialty Start Date End Date Elsewhere, Pcp PCP - General Internal Medicine 06/06/22
--- OUTSIDE RECORDS SUMMARY | 2023-10-25 06:23 | XMS_ITS ---
Author Name Unknown Organization [facility] Address [address] [place] [address] Care Team Providers Care Superintendent Plant Protection Name Role Phone Unavailable Unavailable Unavailable Surgery Details Not on file Complications Check Surgery Details section. Procedure Estimated Blood Loss Check Surgery Details section. Procedure Findings Check Surgery Details section. Procedure Specimens Taken Check Surgery Details section.
--- OUTSIDE RECORDS SUMMARY | 2023-10-25 06:23 | XMS_ITS | Clinical Summary ---
Author Name Unknown Organization [email or web address] Address [place], [place] [address] Care Team Providers Care Bell Spinner Sousaphones Name Role Phone Adenike Storey DIRECTOR OF ACQUISITIONS Primary Care Provider +1- [phone] Allergies Active Allergy Reactions Criticality Noted Date [...] Take 100 mg by mouth once daily. Active SUMAtriptan (IMITREX) 50 mg tablet Take 50 mg by mouth every 2 hours if needed for Migraine. Max dose: 200mg per 24 hrs. Active Cetirizine (ZYRTEC) 10 mg cap Take 10 mg by mouth. Active polyethylene glycol (MIRALAX) 17 g powder for solutionIndications:Co nstipation, unspecified constipation type Take 17 g by mouth once daily. 10 Packet 09/22/2017 Active venlafaxine (EFFEXOR XR) 150 mg Extended-Release capsuleIndications:Anx iety Take 1 Capsule (150 mg) by mouth once daily with evening meal. 0 11/13/2022 Active busPIRone (BUSPAR) 10 mg tablet Take 10 mg by mouth two times daily. 07/15/2021 Active losartan (COZAAR) 50 mg tablet Take 1 Tablet by mouth once daily. 09/24/2021 Active omeprazole (PRILOSEC) 20 mg Delayed-Release capsule Take 1 Capsule by mouth once daily. 11/24/2021 Active rosuvastatin (CRESTOR) 10 mg tablet Take 10 mg by mouth once daily with evening meal. 07/15/2021 Active SITagliptin phosphate (JANUVIA) 100 mg tablet Take 100 mg by mouth once daily. 07/15/2021 Active Encounters Date Type Department Care Team Description 08/10/2023 10:57 AM SHEET ROLLER OPERATOR - 08/10/2023 11:59 PM SHEET ROLLER OPERATOR Hospital Encounter [address] [address] Michelle Edwards PA Henry, Lori J, VICE PRESIDENT EDUCATION 08/10/2023 Travel 07/27/2023 10:56 AM SHEET ROLLER OPERATOR - 07/27/2023 11:59 PM SHEET ROLLER OPERATOR Hospital Encounter [address] [address] Michelle Edwards PA Henry, Lori J, VICE PRESIDENT EDUCATION 07/27/2023 Travel from Last 3 Months Social History Tobacco [...] 170.2 cm (5' 7) 07/20/2020 11:01 AM SHEET ROLLER OPERATOR Body Mass Index 28.38 07/20/2020 11:01 AM SHEET ROLLER OPERATOR Plan of Treatment Health Maintenance Due Date [...] - PCV) 2008 Influenza for age 65+ 02/18/2024 COVID-19 vaccine series Completed 03/28/20, 11/12/2021, 03/25/2021, Additional history exists Advance Directives * Full Code (Latest Code Status on File) Date Activated Date Inactivated Comments 06/27/2018 6:49 AM 06/27/2018 11:10 AM Care Teams Bell Spinner Sousaphones Relationship Specialty Start Date End Date Adenike Storey, DIRECTOR OF ACQUISITIONS [address] [place] [address] PCP - General Emergency Medicine 05/18/22
--- OUTSIDE RECORDS SUMMARY | 2023-10-25 06:23 | XMS_ITS | Encounter Summary ---
Author Name Unknown Organization [facility] Address [address] [place] [address] Care Team Providers Care Aluminum Boat Inspector Name Role Phone Elsewhere, Pcp Primary Care Provider Unavailabl e Reason for Referral * Outpatient (Routine) - Closed Specialty Diagnoses / Procedures Referred By Patria angeles Referred To Contact Diagnoses Screening Mammogram Average Risk Patient Procedures BI Breast Screening Bilateral with Tomosynthesis Kathleen Gao M.D. [address] [place] [phone] [facility] Referral ID Status Reason Start Date Expiration Date Visits Re quested Visits Authorized [id number] Closed 07/24/2023 07/23/2024 1 1 Reason for Visit * Outpatient (Routine) - Closed Specialty Diagnoses / Procedures Referred By Patria angeles Referred To Contact Diagnoses Screening Mammogram Average Risk Patient Procedures BI Breast Screening Bilateral with Tomosynthesis Kathleen Gao M.D. [address] [place] [phone] [facility] Referral ID Status Reason Start Date Expiration Date Visits Re quested Visits Authorized [id number] Closed 07/24/2023 07/23/2024 1 1 Encounter Details Date Type Department Care Team (Latest Contact Info) Description 08/30/2023 1:11 PM CDT - 08/30/2023 11:59 PM CDT Hospital Encounter Department of Radiology in [address] [place] [address] Kathleen Gao M.D. [address] [facility] [place] [address] Screening Mammogram Average Risk Patient Discharge Disposition: Home or Self Care Social History Tobacco Use Types Packs/Day Years Used Date Smoking Tobacco: Never Smokeless Tobacco: Never Humiliation, Afraid, Rape, and Kick questionnair e [...] week 07/10/2021 How often do you attend [facility] or taoism services? More than 4 times per year 07/10/2021 Do you belong to any clubs o r organizations such as mu-ism groups, unions, fraternal or athletic groups, or [...] Answer Date Recorded PHQ-2 Score 0 07/15/2021 [facility] Occupat ional [facility] - Occupational Stress Questionnaire Answer Date Recorded [...] place to sleep or slept in a longterm (including now)? No 07/10/2021 Nutrition Answer Date [...] Sex Assigned at Female 06/01/2017 8:39 AM SCIENTIFIC SPECIALIST Gender Identity Female 06/01/2017 8:39 AM SCIENTIFIC SPECIALIST Sexual Orientation Straight 06/01/2017 8: 39 AM SCIENTIFIC SPECIALIST documented as of this encounter Medications at Time of Discharge Medication Sig Dispensed Refills Start Date End Date ammonium lactate (AMLACTIN) 12 % cream APPLY TO AREAS ON BODY TWICE A DAY ONGOING 07/19/2021 aspirin 81 mg chewable tablet Chew 1 tablet daily. 02/20/2015 atenoloL (TENORMIN) 100 mg tabletIndications:Hyper tension Essential Primary Take 1 tablet (100 mg total) by mouth daily. 90 tablet 3 07/15/2021 betamethasone dipropionate (for_DIPROLENE) 0.05 % lotion as needed. 03/24/2017 busPIRone (BUSPAR) 10 mg tabletIndications:Anxie ty Generalized Disorder Take 1 tablet (10 mg total) by mouth 2 (two) times a day. 180 tablet 3 07/15/2021 losartan (COZAAR) 50 mg tabletIndications:Hyper tension Essential Primary Take 1 tablet by mouth once daily 90 tablet 3 09/24/2021 omeprazole (PriLOSEC) [address] capsuleIndications:Dysp epsia Take 1 capsule by mouth once daily 90 capsule 3 11/24/2021 polyethylene glycol (MIRALAX) 17 gram powder packet Take 1 packet by mouth as needed. 09/22/2017 rosuvastatin (Crestor) 10 mg tabletIndications:Hyper lipidemia Mixed Take 1 tablet (10 mg total) by mouth at bedtime. A higher dose of medication could be considered. 90 tablet 3 07/15/2021 SITagliptin (JANUVIA) 100 mg tabletIndications:Diabe deyanira Mellitus Type 2 (HCC) Take 1 tablet (100 mg total) by mouth daily. 90 tablet 3 07/15/2021 SUMAtriptan (IMITREX) 50 mg tabletIndications:Spora dic Hemiplegic Migraine (SHM) Take 1 tablet (50 mg total) by mouth as needed for migraine. May repeat dose once in 2 hours if migraine unresolved. Do not exceed 200 mg in 24 hours. 9 tablet 3 07/15/2021 venlafaxine XR (EFFEXOR-XR) 150 mg 24 hr capsuleIndications:Anxi ety Generalized Disorder TAKE 1 CAPSULE BY MOUTH ONCE DAILY WITH FOOD 90 capsule 2 09/27/2021 documented as of this encounter Plan of Treatment Not on file documented as of this encounter Procedures Procedure Name Priority Date/Time Associated Diagnosis Comments BI BREAST SCREENING BILATERAL WITH TOMOSYNTHESIS RAD - Routine (most inpatients and all outpatients) 08/30/2023 1:40 PM CDT Screening Mammogram Average Risk Patient documented in this encounter Results * BI Breast Screening Bilateral with [...] ASSESSMENT: BI-RADS: 1: Negative. Kathleen Gao M.D. [facility] BI PROCEDURES documented in this encounter Visit Diagnoses Diagnosis Screening Mammogram Average Risk Patient documented in this encounter Additional Health Concerns Assessment Noted Time PHQ-9 Depression Total Score: 3 03/29/20 19 7:47 AM CDT documented as of this encounter Care Teams Aluminum Boat Inspector Relationship Specialty Start Date End Date Elsewhere, Pcp PCP - General Internal Medicine 06/06/22 documented as of this encounter
--- OUTSIDE RECORDS SUMMARY | 2023-10-25 06:23 | XMS_ITS | Clinical Summary ---
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 For routine questions regarding patient records, call [phone] during business hours, M-F 8:00 AM - 5:00 PM Central Time. Record requests for emergency care only can be directed to [phone] at any time.[facility] Allergies Active Allergy Reactions Criticality Noted Date [...] Tachycardia, Unspecified 11/18/2013 06/01/2017 Overview: Supraventricular tachycardia Encounters Date Type Department Care Team Description 08/30/2023 1:11 PM CDT - 08/30/2023 11:59 PM CDT Hospital Encounter Department of Radiology in [address] [id number] Kathleen Gao M.D. Screening Mammogram Average Risk Patient Discharge Disposition: Home or Self Care from Last 3 Months Immunizations Name Administration Dates Next Due HZV [...] History Medical History Relation Name Comments Agent Cavalier Brother Alcohol abuse Brother COPD Brother Coronary [...] Face an d neck Dementia Paternal Grandmother intermediate resident Breast cancer Sister 1 Radha inflammatory [...] 07/10/2021 How often do you attend chur ch or christianity services? More than 4 times per year 07/10/2021 Do you belong to any clubs o r organizations such as zoroastrian groups, unions, fraternal or athletic groups, or [...] Answer Date Recorded PHQ-2 Score 0 07/15/2021 [facility] [place] [facility] - Occupational Stress [...] money to buy more. Never true 07/10/19 22 Within the past 12 months, t he [...] place to sleep or slept in a retirement (including now)? 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 DESIGNER Gender Identity Female 06/01/2017 8:39 AM SEWER SEPARATION DESIGNER Sexual Orientation Straight 06/01/2017 8: 39 AM SEWER SEPARATION DESIGNER Last Filed Vital Signs Vital Sign Reading [...] PHQ-2) 06/19/2023 Fall Risk Screen (Annual) 06/19/2023 COVID-19 Vaccine (2 4 season) 2023 03/28/2023, 11/12/2021, 03/25/2021, Additional history exists Creatinine Level (Kidney Fun ction Test) 11/14/2023 [...] Discontinued Zoster Vaccines Completed 03/01/2022, 12/17, 07/02/2012 Influenza Vaccine Completed 03/28/2023, , 05/18/2021, Additional history exists Mammogram Discontinued 08/30/2023, 06/21, 07/15/2021, Additional history exists CT Colonography Discontinued Cologuard Discontinued Procedures Procedure Name Priority Date/Time Associated Diagnosis Comments BI BREAST SCREENING BILATERAL WITH TOMOSYNTHESIS RAD - Routine (most inpatients and all outpatients) 08/30/2023 1:40 PM CDT Screening Mammogram Average Risk Patient EXTI BASIC METABOLIC PANEL, S/P Routine 11/13/2022 4:38 PM CDT HEMOGLOBIN A1C, B Routine 12/15/2021 8:3 6 AM CDT Diabetes Mellitus Type 2 (HCC) ALBUMIN, RANDOM, U Routine 07/14/2021 8: 56 AM SEWER SEPARATION DESIGNER Diabetes Mellitus Type 2 (HCC) from Last [...] 8:36 AM CDT 12/15/2021 5:44 PM CDT Jhony Poole APRN.N.Eddie., R.N. LAB BL OOD ADD-ON Performing Organization Address City/[facility]/ZIP Co de Phone Number [facility] [address] [place] [address], [place] [address] [facility] [place] [address] [place] [address] * Albumin, Random, Urine (07/14/2021 8:56 AM SEWER SEPARATION DESIGNER) Microalbumin 12.0 mg/L 07/14/2021 5:57 PM SEWER SEPARATION DESIGNER OWAT Creatinine 223 mg/dL 07/14/2021 5:57 PM SEWER SEPARATION DESIGNER OWAT Albumin/Creatinin e Ratio 5 <25 mg/g 07/14/2021 5:57 PM SEWER SEPARATION DESIGNER OWAT Urine (Urine, Clean Catch) 07/14/2021 8:56 AM SEWER SEPARATION DESIGNER 07/14/2021 5:14 PM SEWER SEPARATION DESIGNER Jhony Poole APRN.N.P., R.N. LAB UR INE ORDERABLES [facility] [address] [place] [address], [place] [address] 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 See document viewer. Care Teams Livestock Counter Relationship Specialty Start Date End Date Elsewhere, Pcp PCP - General Internal Medicine 06/06/22
== END 2023-10-24 08:17 | disposition home or self-care (01) ==
LOC: NFLDREF 10-25 06:21
PROVIDERS: PCP Nurse Practitioner Family; Referring Provider Nurse Practitioner Family; Visit Provider Nurse Practitioner Family
DX: E78.5 Hyperlipidemia, unspecified (principal); E11.9 Type 2 diabetes mellitus without complications; Z51.81 Encounter for therapeutic drug level monitoring
CPT/HCPCS: 80061; 80076

== ENCOUNTER 2024-07-22 09:32 | Outpatient (CLI) | payer MEDICARE, SELFPAY | END 2024-07-22 09:33 | disposition home or self-care (01) | PROVIDERS: PCP Nurse Practitioner Family; Visit Provider Nurse Practitioner Family | DX: E11.9 Type 2 diabetes mellitus without complications (principal); E78.5 Hyperlipidemia, unspecified; I10 Essential (primary) hypertension; N18.2 Chronic kidney disease, stage 2 (mild); M85.80 Other specified disorders of bone density and structure, unspecified site; G43.909 Migraine, unspecified, not intractable, without status migrainosus; I47.10 Supraventricular tachycardia, unspecified; Z13.0 Encounter for screening for diseases of the blood and blood-forming organs and certain disorders involving the immune mechanism | CPT/HCPCS: 80053; 80061; 82043; 82570; 82607; 83036; 84443; 85025 ==

== ENCOUNTER 2024-08-16 08:31 | Outpatient (CLI) | payer MEDICARE, SELFPAY ==
[2024-08-16 18:12] LABS: PCR FLU A Negative PCR FLU A (Negative); PCR FLU B Negative PCR FLU B (Negative); PCR RSV Negative PCR RSV (Negative); SARS PCR* Negative SARS-CoV-2 (Negative)
== END 2024-08-16 08:32 | disposition home or self-care (01) ==
LOC: KYNREF 08:31
PROVIDERS: PCP Nurse Practitioner Family; Visit Provider Nurse Practitioner Family
DX: J11.1 Influenza due to unidentified influenza virus with other respiratory manifestations (principal)
CPT/HCPCS: 87631